=== PATIENT | male | born 1980 | race African-American/Black ===

== ENCOUNTER 2025-05-06 19:07 | Emergency (ER) | payer OTHER ==
[~2025-05-06] VITALS: Ht 175.3 cm; Wt 102.1 kg
[2025-05-06] MEDS ORDERED: Vancomycin IV 2 GM in SODIUM CHLORIDE 0.9% 250ML 250 ML IV ONE (19:30)
[2025-05-06] MEDS: SODIUM CHLORIDE 0.9% 1000ML 1,000 ML IV ONE (19:56)
[2025-05-06] MEDS: ACETAMINOPHEN 325 MG TAB PO ONE (19:57)
[2025-05-06 20:05] LABS: BASOPHILS % 0.7 % (0.0-1.0); EOSINOPHILS % 1.9 % (0.0-6.0); LYMPHOCYTES % 25.0 % (18.0-39.1); MONOCYTES % 7.0 % (4.4-11.3); NEUTROPHILS % 65.2 % (38.7-80.0); RED CELL DISTRIBUTION WIDTH 13.2 % (11.7-14.4)
[2025-05-06 20:23] LABS: INR 0.95
[2025-05-06 20:25] LABS: EST GLOMERULAR FILTRATION RATE 116.0 ML/MIN (>=60)
[2025-05-06 20:37] LABS: LEUKOCYTE ESTERASE ,URINE NEGATIVE (NEGATIVE); PROTEIN,URINE DIPSTICK NEGATIVE (NEGATIVE); URINE UROBILINOGEN 1 mg/dL (0.2 - 1)
[2025-05-06 20:39] LABS: EPITHELIAL CELLS,URINE RARE /LPF
[2025-05-06] MEDS: VANCOMYCIN 2 GRAM/400 ML (PEG) 400 ML IV ONE (20:44)
[2025-05-06] MEDS: LIDOCAINE HCL 1% LOCAL INJ 20 ML VIAL INJ ONE (22:37)
[2025-05-06] MEDS ORDERED: METFORMIN HCL500 MG PO (22:43)
[2025-05-06] MEDS ORDERED: BACTRIM DS TAB1 EACH PO (22:43)
[2025-05-06] MEDS ORDERED: CEPHALEXIN500 MG PO (22:43)
[2025-05-06] MEDS ORDERED: ZESTRIL20 MG PO (22:43)
[2025-05-07] MEDS: SODIUM CHLORIDE 0.9% 1000ML 1,000 ML IV ONE (00:22)
[2025-05-07] MEDS: TRAMADOL HCL 50 MG TAB PO ONE (00:34)
[2025-05-07 02:01] VITALS: PULSE 115; RESP 19; TEMP 101
[2025-05-07] MEDS ORDERED: IBUPROFEN 200 MG TAB ONE (02:03)
[2025-05-07] MEDS: IBUPROFEN 400 MG TAB PO ONE (02:05)
[2025-05-07 02:28] VITALS: BP 131/78; PULSE 98; RESP 18; TEMP 98.3; O2SAT 100
== END 2025-05-07 02:00 | disposition home or self-care (01) ==
LOC: ER 19:31
DX: L02.212 Cutaneous abscess of back [any part, except buttock and flank] (principal); E11.65 Type 2 diabetes mellitus with hyperglycemia; I10 Essential (primary) hypertension; E78.5 Hyperlipidemia, unspecified; Z87.442 Personal history of urinary calculi
CPT/HCPCS: 10061; 36415; 71045; 80053; 81001; 83605; 85025; 85610; 85730; 87040; 87086; 93005; 99284; J2003; J7030 ×2